=== PATIENT | female | born 1950 | race Caucasian/White ===

== ENCOUNTER → 2017-03-23 | Outpatient (CLI) | payer OTHER, MEDICARE ==
[~2017-03-23] MED LIST: ALPR0.25 PO; ANAS1TAB PO; CEPH-368 PO; OXYC1TAB7 PO; SIMV20TA3 PO; TELM1TAB25 PO; ZOLP10TA PO
== END | disposition home or self-care (01) ==
LOC: CFH 11:09
PROVIDERS: ATTEND Internal Medicine Hematology & Oncology
DX: Z13.820 Encounter for screening for osteoporosis (principal); N95.9 Unspecified menopausal and perimenopausal disorder; C50.911 Malignant neoplasm of unspecified site of right female breast
CPT/HCPCS: 77080

== ENCOUNTER 2020-01-31 21:13 | Emergency (ER) | payer MEDICARE, OTHER ==
[~2020-01-31] VITALS: Ht 160 cm; Wt 86.5 kg
[~2020-01-31 21:13] MED LIST changes: +SIMV20TA19 PO; -SIMV20TA3 PO
[2020-01-31] MEDS ORDERED: IBUPROFEN 200 MG TABLET ONE (21:23)
--- NOTE | 2020-01-31 21:26 | NUR ---
PT MEDICATED FOR FEVER IN TRIAGE.
[2020-01-31] MEDS ORDERED: IBUPROFEN 200 MG TABLET PO ONE (21:30)
--- NOTE | 2020-01-31 22:26 | NUR ---
FLARE [employer]ITCHER: PT WALKED BACK FROM LOBBY TO ROOM AT THIS TIME. STEADY UPON AMBULATION.
--- NOTE | 2020-01-31 22:51 | NUR ---
PT HERE FOR FEVER, BOLDEN AND COUGH THAT STARTED YESTERDAY. HR HIGH IN TRIAGE BUT IS NOW IN 90'S. VSS. PT DENIES SICK CONTACTS BUT DID GO TO LUNCH ON MONDAY. MD AT BEDSIDE. CALL LIGHT IN REACH
[2020-01-31 23:43] LABS: ALBUMIN 3.3 g/dL (3.4-5.0); ANION GAP 6 mmol/L (5-15); CALCIUM 8.5 mg/dL (8.5-10.1); CHLORIDE 105 mmol/L (98-107)
[2020-01-31 23:47] LABS: ALANINE AMINOTRANSFERASE 20 U/L (12-78); ALKALINE PHOSPHATASE 84 U/L (45-117); BILIRUBIN,TOTAL 0.4 mg/dL (0.2-1.0); CREATININE 1.01 mg/dL (0.55-1.02)
[2020-02-01 00:11] LABS: BASOPHILS % (AUTO) 1 % (0-1); EOSINOPHILS % (AUTO) 1 % (1-7); LYMPHOCYTES % (AUTO) 11 % (22-44); MEAN CORPUSCULAR HEMOGLOBIN 30.1 pg (27.0-34.8); MEAN CORPUSCULAR HGB CONC 33.3 g/dL (32.4-35.8); MEAN PLATELET VOLUME 9.2 fL (7.4-10.4); MONOCYTES % (AUTO) 13 % (2-9); NEUTROPHILS % (AUTO) 75 % (42-75); PLATELET COUNT 259 x10^3/uL (130-400); RED BLOOD COUNT 3.97 x10^6/uL (3.82-5.3); RED CELL DISTRIBUTION WIDTH 13.1 % (9.6-15.2)
[2020-02-01 00:16] LABS: MD NO
--- NOTE | 2020-02-01 00:40 | NUR ---
Patient given discharge instructions and they have confirmed that they understand the instructions. Patient ambulatory with steady gait.
[2020-02-01 00:41] VITALS: BP 122/46
== END 2020-02-01 00:43 | disposition home or self-care (01) ==
LOC: ED 23:06
DX: B34.9 Viral infection, unspecified (principal); R50.9 Fever, unspecified; Z20.828 Contact with and (suspected) exposure to other viral communicable diseases; I10 Essential (primary) hypertension; Z85.3 Personal history of malignant neoplasm of breast
CPT/HCPCS: 36415; 71045; 80053; 83605; 84145; 85025; 85379; 87040; 87635; 93005; 99285